=== PATIENT | male | born 1990 | race African-American/Black ===

== ENCOUNTER 2016-11-11 19:29 | Emergency (ER) | payer MEDICARE, OTHER ==
[2016-11-11 20:08] LABS: URINE SOURCE CLEAN CATCH
[2016-11-11 20:13] LABS: URINE APPEARANCE CLEAR; URINE BILIRUBIN NEG (NEG); URINE BLOOD NEG (NEG); URINE COLOR YELLOW; URINE GLUCOSE NEG (NEG); URINE KETONE NEG (NEG); URINE LEUKOCYTE ESTERASE NEG (NEG); URINE NITRATE NEG (NEG); URINE PH 5.5 (5-8); URINE PROTEIN TRACE (NEG)
[2016-11-11 20:20] LABS: CULTURE INDICATED? NO
[2016-11-14 11:53] LABS: CHLAMYDIA TRACH Not Detected (Not Detected); N GONOR Not Detected (Not Detected)
== END 2016-11-11 21:00 | disposition home or self-care (01) ==
LOC: CFTX 19:29 → CED 19:29 → CFTX 20:22
PROVIDERS: Emergency Medicine
DX: L30.9 Dermatitis, unspecified (principal); B07.9 Viral wart, unspecified; F31.9 Bipolar disorder, unspecified; F17.210 Nicotine dependence, cigarettes, uncomplicated; Z88.8 Allergy status to other drugs, medicaments and biological substances
CPT/HCPCS: 81003; 87491; 87591; 99282